=== PATIENT | female | born 1965 | race Caucasian/White ===

== ENCOUNTER 2017-03-25 21:11 | Emergency (ER) | payer OTHER ==
[~2017-03-25] VITALS: Ht 162.6 cm; Wt 77.6 kg
[~2017-03-25 21:11] MED LIST: CITALOPRAM HBR20 MG PO; GABAPENTIN300 MG PO; HYDROCODON-ACE1 EA11
[2017-03-25] MEDS ORDERED: CYCLOBENZAPRINE HCL 10 MG TAB PO ONE (22:30)
[2017-03-25] MEDS ORDERED: KETOROLAC TROMETHAMINE 60 MG/2 ML VIAL IM ONE (22:30)
[2017-03-25 23:00] VITALS: BP 145/80
== END 2017-03-25 22:39 | disposition home or self-care (01) ==
LOC: FSED 21:39
DX: M62.838 Other muscle spasm (principal)
CPT/HCPCS: 99282; J1885

== ENCOUNTER 2017-12-10 10:29 | Emergency (ER) | payer MEDICARE ==
[~2017-12-10] VITALS: Ht 162.6 cm; Wt 77.6 kg
[2017-12-10] MEDS ORDERED: HYDROCODONE/APAP 10MG-325MG TAB PO ONE (10:45)
--- NOTE | 2017-12-10 12:08 | Diagnostic Imaging Report ---
Radiographs of the left hand - 3 views. Radiographs of the left wrist 3 views HISTORY: Pain. Fall. COMPARISON: None available. FINDINGS: Bones: No acute displaced fracture. Osseous alignment is within normal limits. Joints: Mild scattered degenerative change about the left hand and left wrist. No osseous erosion. Soft tissues: Mild soft tissue swelling. No radiopaque foreign body. IMPRESSION: Mild scattered degenerative change about the left hand and left wrist. No osseous erosion. Signed by: Dr. Mihcael Min M.D. on 12/10/2017 12:05 PM
[2017-12-10] MEDS ORDERED: HYDROCODONE/APAP 10MG-325MG TAB PO SCH (14:45)
--- OUTSIDE RECORDS SUMMARY | 2017-12-10 14:46 | XMS REPORT | Summary of Care ---
Author Author [facility] Organization [facility] Address Unknown Phone Unavailable Encounter HQ Chris(FIN) [id number] Date(s): 09/30/15 - 10/01/15 [facility] [address] [place] [address]- Discharge Diagnosis: Low back pain Discharge Disposition: Home or Self Care Attending Physician: Cherry Linares DO Vital Signs Most recent to 1 2 oldest [Reference Range]: Height 162.56 cm (09/30/15 10:12 PM) Temperature Oral 98.7 DegF 99.4 DegF [96.4-99.1 DegF] (10/01/15 1:33 AM) *HI* (09/30/15 10:12 PM) Blood Pressure 164/89 mmHg [90-140/60-90 mmHg] *HI* (09/30/15 10:12 PM) Systolic Blood 127 mmHg Pressure [90-140 (10/01/15 1:33 AM) mmHg] Diastolic Blood 77 mmHg Pressure [60-90 (10/01/15 1:33 AM) mmHg] Respiratory Rate 18 BRMIN 18 BRMIN [14-20 BRMIN] (10/01/15 1:33 AM) (09/30/15 10:12 PM) Peripheral Pulse 90 bpm 89 bpm Rate [60-100 bpm] (10/01/15 1:33 AM) (09/30/15 10:12 PM) Weight 77.727 kg (09/30/15 10:12 PM) Body Mass Index 29.41 m2 (09/30/15 10:12 PM) Problem List Condition Effective Dates Status Health Status Informant Arthritis(Confirmed) Resolved Backache1 07/29/12 Active Migraine2 07/29/12 Active Multiple Resolved sclerosis(Confirmed) Neuropathy(Confirmed Resolved ) Shingles(Confirmed) Resolved [facility] 10/19/14. 2Data migrated from [employer] on 10/19/14. Allergies, Adverse Reactions, Alerts Substance Reaction Severity Status codeine1, 2 Active 1[facility] on 05/17/15. Originally documented as CODEINE. 2[facility] from [facility] on 04/27/15. Originally documented as CODEINE. Medications Flexeril 10 mg oral tablet 10 mg, PO, TID, PRN Muscle Spasm, X 10 day, # 30 tab, 0 Refill(s) Start Date: 10/01/15 Stop Date: 10/11/15 Status: Ordered ibuprofen 400 mg oral tablet 400 mg=1 tab, PO, Q6H, PRN Pain or Fever, Take with food, X 10 day, # 40 tab, 0 Refill(s) Start Date: 10/01/15 Stop Date: 10/11/15 Status: Ordered ketOROLAC 30 mg, Route: IVP, Drug form: INJ, ONCE, Dosing Weight 77.727, kg, Priority: STA T, Start date: 09/30/15 23:43:00 CDT, Stop date: 09/30/15 23:43:00 CDT Start Date: 09/30/15 Stop Date: 09/30/15 Status: Discontinued morphine Sulfate 4 mg, 2 mL, Route: IVP, Drug form: INJ, ONCE, Dosing Weight 77.727, kg, Priority : STAT, Start date: 09/30/15 23:46:00 CDT, Stop date: 09/30/15 23:46:00 CDT Notes: (Same as:MORPhine Sulfate) Start Date: 09/30/15 Stop Date: 10/01/15 Status: Completed Sodium Chloride 0.9% (Bolus) IV 1,000 mL, 2,000 ml/hr, Infuse Over: 30 minutes, Route: IV, 1,000, Drug form: INJ , ONCE, Priority: STAT, Dosing Weight 77.727 kg, Start date: 09/30/15 23:46:00 C DT, Duration: 1 doses or times, Stop date: 09/30/15 23:46:00 CDT Start Date: 09/30/15 Stop Date: 10/01/15 Status: Completed Sodium Chloride 0.9% (Bolus) IV 1,000 mL, 2,000 ml/hr, Infuse Over: 30 minutes, Route: IV, 1,000, Drug form: INJ , ONCE, Priority: STAT, Dosing Weight 77.727 kg, Start date: 09/30/15 23:46:00 C DT, Duration: 1 doses or times, Stop date: 09/30/15 23:46:00 CDT Start Date: 09/30/15 Stop Date: 10/01/15 Status: Completed Tylenol 650 mg, 2 tab, Route: PO, Drug form: TAB, ONCE, Dosing Weight 77.727, kg, Priori ty: STAT, Start date: 09/30/15 22:21:00 CDT, Stop date: 09/30/15 22:21:00 CDT Notes: Do not exceed 4 gm/day. (Same as: Tylenol) Start Date: 09/30/15 Stop Date: 10/01/15 Status: Completed Valium 5 mg, Route: IVP, Drug form: INJ, ONCE, Dosing Weight 77.727, kg, Priority: STAT , Start date: 09/30/15 23:43:00 CDT, Stop date: 09/30/15 23:43:00 CDT Start Date: 09/30/15 Stop Date: 09/30/15 Status: Discontinued Zofran 4 mg, 2 mL, Route: IVP, Drug form: INJ, ONCE, Dosing Weight 77.727, kg, Priority : STAT, Start date: 09/30/15 23:46:00 CDT, Stop date: 09/30/15 23:46:00 CDT Notes: (Same as: Zofran) MEDICATION WASTE Product Size: 4 mgProduct Was shan: ___ mg Start Date: 09/30/15 Stop Date: 10/01/15 Status: Completed Results ELECTROLYTES Most recent to 1 oldest [Reference Range]: Sodium Lvl [135-145 133 mEq/L mEq/L] *LOW* (09/30/15 10:58 PM) Potassium Lvl 3.5 mEq/L [3.5-5.1 mEq/L] (09/30/15 10:58 PM) Chloride Lvl [95-109 101 mEq/L mEq/L] (09/30/15 10:58 PM) CO2 [24-32 mEq/L] 25 mEq/L (09/30/15 10:58 PM) AGAP [10.0-20.0 10.5 mEq/L mEq/L] (09/30/15 10:58 PM) CHEM PANEL Most recent to 1 oldest [Reference Range]: Creatinine Lvl 0.93 mg/dL [0.50-1.40 mg/dL] (09/30/15 10:58 PM) eGFR 73 mL/min/1.73m2 1 *NA* (09/30/15 10:58 PM) BUN [7-22 mg/dL] 8 mg/dL (09/30/15 10:58 PM) B/C Ratio [6-25] 9 (09/30/15 10:58 PM) Glucose Lvl [70-99 93 mg/dL mg/dL] (09/30/15 10:58 PM) Total Protein 7.6 g/dL [6.4-8.4 g/dL] (09/30/15 10:58 PM) Albumin Lvl [3.5-5.0 3.8 g/dL g/dL] (09/30/15 10:58 PM) Globulin [2.7-4.2 3.8 g/dL g/dL] (09/30/15 10:58 PM) A/G Ratio [0.7-1.6] 1.0 (09/30/15 10:58 PM) Calcium Lvl 8.5 mg/dL [8.5-10.5 mg/dL] (09/30/15 10:58 PM) ALT [0-65 unit/L] 23 unit/L (09/30/15 10:58 PM) AST [0-37 unit/L] 20 unit/L (09/30/15 10:58 PM) Alk Phos [39-136 72 unit/L unit/L] (09/30/15 10:58 PM) Bili Total [0.2-1.3 0.2 mg/dL mg/dL] (09/30/15 10:58 PM) 1Result Comment: The eGFR is calculated using the CKD-EPI formula. In most young, healthy individuals the eGFR will be >90 mL/min/1.73m2. The eGFR declines with age. An eGFR of 60-89 may be normal in some populations, particularly the elderly, for whom the CKD-EPI formula has not been extensively validated. Use of the eGFR is not recommended in the following populations: Individuals with unstable creatinine concentrations, including patients and those with serious co-morbid conditions. Patients with extremes in muscle mass or diet. The data above are obtained from the National Kidney Disease Education Program ( NKDEP) which additionally recommends that when the eGFR is used in patients with extremes of body mass index for purposes of drug dosing, the eGFR should be mul tiplied by the estimated BMI. CARDIAC ENZYMES Most recent to 1 oldest [Reference Range]: Total CK [12-191 75 unit/L unit/L] (09/30/15 10:58 PM) URINE CHEM Most recent to 1 oldest [Reference Range]: U Preg [Negative] Negative (09/30/15 11:56 PM) URINE AND STOOL Most recent to 1 oldest [Reference Range]: UA Turbidity [Clear] Clear (09/30/15 11:56 PM) UA Color Ltyellow *NA* (09/30/15 11:56 PM) UA pH [5.0-8.0] 8.0 (09/30/15 11:56 PM) UA Spec Grav 1.012 [<=1.030] (09/30/15 11:56 PM) UA Glucose [Negative Negative mg/dL mg/dL] *NA* (09/30/15 11:56 PM) UA Blood [Negative] Negative (09/30/15 11:56 PM) UA Ketones [Negative Trace mg/dL mg/dL] *ABN* (09/30/15 11:56 PM) UA Protein [Negative Negative mg/dL mg/dL] (09/30/15 11:56 PM) UA Urobilinogen <=1.0 mg/dL [0.1-1.0 mg/dL] *NA* (09/30/15 11:56 PM) UA Bili [Negative] Negative *NA* (09/30/15 11:56 PM) UA Leuk Est Negative [Negative] (09/30/15 11:56 PM) UA Nitrite Negative [Negative] (09/30/15 11:56 PM) UA WBC [0-5 /HPF] <1 /HPF (09/30/15 11:56 PM) UA RBC [0-2 /HPF] 2 /HPF (09/30/15 11:56 PM) UA Sq Epi [Few /LPF] Few /LPF *NA* (09/30/15 11:56 PM) HEMATOLOGY Most recent to 1 oldest [Reference Range]: WBC [3.7-10.4 K/CMM] 6.1 K/CMM (09/30/15 10:58 PM) RBC [4.20-5.40 4.71 M/CMM M/CMM] (09/30/15 10:58 PM) Hgb [12.0-16.0 g/dL] 13.9 g/dL (09/30/15 10:58 PM) Hct [36.0-48.0 %] 40.5 % (09/30/15 10:58 PM) MCV [80.0-98.0 fL] 86.1 fL (09/30/15 10:58 PM) MCH [27.0-31.0 pg] 29.5 pg (09/30/15 10:58 PM) MCHC [32.0-36.0 34.3 g/dL g/dL] (09/30/15 10:58 PM) RDW [11.5-14.5 %] 13.6 % (09/30/15 10:58 PM) Platelet [133-450 219 K/CMM K/CMM] (09/30/15 10:58 PM) MPV [7.4-10.4 fL] 8.5 fL (09/30/15 10:58 PM) Segs [45.0-75.0 %] 72.6 % (09/30/15 10:58 PM) Lymphocytes 14.0 % [20.0-40.0 %] *LOW* (09/30/15 10:58 PM) Monocytes [2.0-12.0 11.2 % %] (09/30/15 10:58 PM) Eosinophils [0.0-4.0 1.9 % %] (09/30/15 10:58 PM) Basophils [0.0-1.0 0.3 % %] (09/30/15 10:58 PM) Segs-Bands # 4.4 K/CMM [1.5-8.1 K/CMM] (09/30/15 10:58 PM) Lymphocytes # 0.9 K/CMM [1.0-5.5 K/CMM] *LOW* (09/30/15 10:58 PM) Monocytes # [0.0-0.8 0.7 K/CMM K/CMM] (09/30/15 10:58 PM) Eosinophils # 0.1 K/CMM [0.0-0.5 K/CMM] (09/30/15 10:58 PM) Immunizations No data available for this section Procedures No data available for this section Social History Social History Type Response Smoking Status Never smoker; Ready to change: No; Concerns about tobacco use in household: No; Exposure to Tobacco Smoke None; Cigarette Smoking Last 365 Days No; Reg Smoking Cessation Counseling No Assessment and Plan No data available for this section
--- OUTSIDE RECORDS SUMMARY | 2017-12-10 14:46 | XMS REPORT | Continuity of Care Document ---
Author Author [facility] Interface Address Unknown Phone Unavailable Problems Problem Status Onset Date Classification Date Reported Comments Source Discharge Diagnosis: Low back pain 10/01/2015 10/04/2015 [facility] FEVER Active 09/30/2015 [facility] Backache<sup>1</sup> Active 07/29/2012 Problem 10/04/2015 Data migrated from [employer] on 10/19/14. [facility] Migraine<sup>2</sup> Active 07/29/2012 Problem 10/04/2015 Data migrated from [employer] on 10/19/14. [facility] Arthritis Resolved Problem 10/04/2015 [facility] Multiple sclerosis Resolved Problem 10/04/2015 [facility] Neuropathy Resolved Problem 10/04/2015 [facility] Shingles Resolved Problem 10/04/2015 [facility] Medications Medication Details Route Status Patient Instructions Ordering Provider Order Date Source Ibuprofen 400 MG Oral Tablet 400 mg=1 tab, PO, Q6H, PRN Pain or Fever, Take with food, X 10 day, # 40 tab, 0 Refill(s) Active 10/01/2015 [facility] Cyclobenzaprine hydrochloride 10 MG Oral Tablet [Flexeril] 10 mg, PO, TID, PRN Muscle Spasm, X 10 day, # 30 tab, 0 Refill(s) Active 10/01/2015 [facility] Sodium Chloride 0.154 MEQ/ML Injectable Solution 1,000 mL, 2,000 ml/hr, Infuse Over: 30 minutes, Route: IV, 1,000, Drug form: INJ, ONCE, Priority: STAT, Dosing Weight 77.727 kg, Start date: 09/30/15 23:46:00 CDT, Duration: 1 doses or times, Stop date: 09/30/15 23:46:00 CDT No Longer Active 10/01/2015 [facility] Zofran 4 mg, 2 mL, Route: IVP, Drug form: INJ, ONCE, Dosing Weight 77.727, kg, Priority: STAT, Start date: 09/30/15 23:46:00 CDT, Stop date: 09/30/15 23:46:00 CDTNotes: (Same as: Zofran) MEDICATION WASTE Product Size: 4 mg Product Wasted: ___ mg No Longer Active 10/01/2015 [facility] Morphine 4 mg, 2 mL, Route: IVP, Drug form: INJ, ONCE, Dosing Weight 77.727, kg, Priority: STAT, Start date: 09/30/15 23:46:00 CDT, Stop date: 09/30/15 23:46:00 CDTNotes: (Same as:MORPhine Sulfate) No Longer Active 10/01/2015 [facility] Ketorolac 30 mg, Route: IVP, Drug form: INJ, ONCE, Dosing Weight 77.727, kg, Priority: STAT, Start date: 09/30/15 23:43:00 CDT, Stop date: 09/30/15 23:43:00 CDT Inactive 10/01/2015 [facility] Valium 5 mg, Route: IVP, Drug form: INJ, ONCE, Dosing Weight 77.727, kg, Priority: STAT, Start date: 09/30/15 23:43:00 CDT, Stop date: 09/30/15 23:43:00 CDT Inactive 10/01/2015 [facility] Tylenol 650 mg, 2 tab, Route: PO, Drug form: TAB, ONCE, Dosing Weight 77.727, kg, Priority: STAT, Start date: 09/30/15 22:21:00 CDT, Stop date: 09/30/15 22:21:00 CDTNotes: Do not exceed 4 gm/day. (Same as: Tylenol) No Longer Active 10/01/2015 [facility] Allergies, Adverse Reactions, Alerts Substance Category Reaction Severity Reaction type Status Date Reported Comments Source codeine<sup>1, 2</sup> Assertion Drug allergy Active 07/29/2012 Data migrated from [employer] on 04/27/15. Originally documented as CODEINE. [facility] Immunizations Immunization Date Given Site Status Last Updated Comments Source Results Order Name Results Value Reference Range Date Interpretation Comments Source URINE AND STOOL UA Urobilinogen <=1.0 mg/dL 0.1 - 1.0 10/01/2015 [facility] URINE AND STOOL UA Color Ltyellow 10/01/2015 [facility] URINE AND STOOL UA Turbidity Clear (09/30/15 11:56 PM) Clear 10/01/2015 [facility] URINE AND STOOL UA Spec Grav 1.012 <=1.030 10/01/2015 [facility] URINE AND STOOL UA Glucose Negative mg/dL Negative mg/dL 10/01/2015 [facility] URINE AND STOOL UA Ketones Trace mg/dL Negative mg/dL 10/01/2015 [facility] URINE AND STOOL UA pH 8.0 5.0 - 8.0 10/01/2015 [facility] URINE AND STOOL UA Protein Negative mg/dL Negative mg/dL 10/01/2015 [facility] URINE AND STOOL UA Bili Negative *NA* (09/30/15 11:56 PM) Negative 10/01/2015 [facility] URINE AND STOOL UA Blood Negative (09/30/15 11:56 PM) Negative 10/01/2015 [facility] URINE AND STOOL UA Sq Epi Few /LPF Few /LPF 10/01/2015 [facility] URINE AND STOOL UA Nitrite Negative (09/30/15 11:56 PM) Negative 10/01/2015 [facility] URINE AND STOOL UA Leuk Est Negative (09/30/15 11:56 PM) Negative 10/01/2015 [facility] URINE AND STOOL UA WBC null 0 - 5 10/01/2015 [facility] URINE AND STOOL UA RBC 2 /HPF 0 - 2 10/01/2015 [facility] URINE CHEM U Preg Negative (09/30/15 11:56 PM) Negative 10/01/2015 [facility] CARDIAC ENZYMES Total CK 75 unit/L 12 - 191 10/01/2015 [facility] ELECTROLYTES AGAP 10.5 meq/L 10.0 - 20.0 10/01/2015 [facility] ELECTROLYTES Globulin 3.8 g/dL 2.7 - 4.2 10/01/2015 [facility] ELECTROLYTES A/G Ratio 1.0 0.7 - 1.6 10/01/2015 [facility] ELECTROLYTES B/C Ratio 9 6 - 25 10/01/2015 [facility] ELECTROLYTES BUN 8 mg/dL 7 - 22 10/01/2015 [facility] ELECTROLYTES Glucose Lvl 93 mg/dL 70 - 99 10/01/2015 [facility] ELECTROLYTES Potassium Lvl 3.5 meq/L 3.5 - 5.1 10/01/2015 [facility] ELECTROLYTES Sodium Lvl 133 meq/L 135 - 145 10/01/2015 [facility] ELECTROLYTES Calcium Lvl 8.5 mg/dL 8.5 - 10.5 10/01/2015 [facility] ELECTROLYTES CO2 25 meq/L 24 - 32 10/01/2015 [facility] ELECTROLYTES Chloride Lvl 101 meq/L 95 - 109 10/01/2015 [facility] ELECTROLYTES Albumin Lvl 3.8 g/dL 3.5 - 5.0 10/01/2015 [facility] ELECTROLYTES eGFR 73 mL/min/1.73m2 10/01/2015 Result Comment: The eGFR is calculated using the [...] from the National Kidney Disease Education Program (NKDEP) which additionally recommends that when the eGFR is used in patients with extremes of body mass index for purposes of drug dosing, the eGFR should be multiplied by the estimated BMI. [facility] ELECTROLYTES AST 20 unit/L 0 - 37 10/01/2015 [facility] ELECTROLYTES Alk Phos 72 unit/L 39 - 136 10/01/2015 [facility] ELECTROLYTES Bili Total 0.2 mg/dL 0.2 - 1.3 10/01/2015 [facility] Creatinine Lvl 0.93 mg/dL 0.50 - 1.40 10/01/2015 [facility] ELECTROLYTES Total Protein 7.6 g/dL 6.4 - 8.4 10/01/2015 [facility] ELECTROLYTES ALT 23 unit/L 0 - 65 10/01/2015 [facility] HEMATOLOGY Eosinophils # 0.1 K/CMM 0.0 - 0.5 10/01/2015 [facility] HEMATOLOGY Monocytes # 0.7 K/CMM 0.0 - 0.8 10/01/2015 [facility] HEMATOLOGY Basophils 0.3 % 0.0 - 1.0 10/01/2015 [facility] HEMATOLOGY Segs-Bands # 4.4 K/CMM 1.5 - 8.1 10/01/2015 [facility] HEMATOLOGY Lymphocytes # 0.9 K/CMM 1.0 - 5.5 10/01/2015 [facility] HEMATOLOGY Segs 72.6 % 45.0 - 75.0 10/01/2015 [facility] Monocytes 11.2 % 2.0 - 12.0 10/01/2015 [facility] Eosinophils 1.9 % 0.0 - 4.0 10/01/2015 [facility] Lymphocytes 14.0 % 20.0 - 40.0 10/01/2015 [facility] WBC 6.1 K/CMM 3.7 - 10.4 10/01/2015 [facility] Platelet 219 K/CMM 133 - 450 10/01/2015 [facility] RDW 13.6 % 11.5 - 14.5 10/01/2015 [facility] MPV 8.5 fL 7.4 - 10.4 10/01/2015 [facility] MCH 29.5 pg 27.0 - 31.0 10/01/2015 [facility] MCV 86.1 fL 80.0 - 98.0 10/01/2015 [facility] Hct 40.5 % 36.0 - 48.0 10/01/2015 [facility] MCHC 34.3 g/dL 32.0 - 36.0 10/01/2015 [facility] Hgb 13.9 g/dL 12.0 - 16.0 10/01/2015 [facility] RBC 4.71 M/CMM 4.20 - 5.40 10/01/2015 [facility] Chest 1view DX Chest 1view DX Patient Name: RENO CARLOS : 1965; Age: 50 years y/o Female MR: [id number] Study: Chest 1view DX dated 09/30/2015 Clinical Indication: Fever; Comparison: None Cardiac and mediastinal structures are normal. No focal infiltrate identified within the lungs, no edema and no pneumothorax. Bones and soft tissues are unremarkable SL: TAMMIE 09/30/2015 - - Read by: Gunnar Hutson MD Dictated Date/time: 10/01/15 00:01 Electronically Signed by: Gunnar Hutson MD 10/01/15 00:02 FINAL REPORT [facility] lumbar 2 or 3 views Spine lumbar 2 or 3 views Three views lumbar spine. INDICATION: Back pain. COMPARISON: August 04, 2012 CT lumbar spine. IMPRESSION: Interval postoperative changes of fusion at L4-L5 and L5-S1 with intervertebral disc spacers. L5-S1 disc space is no longer narrowed. Persistent grade 1 anterolisthesis of L4 on L5 with bilateral pars defects, perhaps mildly widened since CT. No acute compression fracture is identified. 12/09/2012 - - Read by: Bjorn Donato Dictated Date/time: 12/09/12 16:14 Electronically Signed by: Bjorn Donato MD 12/09/12 16:22 FINAL REPORT ER[facility] Squires Vital Signs Vital Sign Value Date Comments Source Systolic (mm Hg) 127 10/01/2015 [facility] Diastolic (mm Hg) 77 10/01/2015 [facility] Respitory Rate 18 10/01/2015 [facility] Heart Rate 90 10/01/2015 [facility] Temperature Oral (F) 98.7 F 10/01/2015 [facility] Weight 77.727 10/01/2015 [facility] Temperature Oral (F) 99.4 F 10/01/2015 [facility] Height 162.56 cm 10/01/2015 [facility] Heart Rate 89 10/01/2015 [facility] Respitory Rate 18 10/01/2015 [facility] BMI Calculated 29.41 10/01/2015 [facility] Systolic (mm Hg) 164 10/01/2015 [facility] Diastolic (mm Hg) 89 10/01/2015 [facility] Encounters Location Location Details Encounter Type Encounter Number Reason For Visit Attending Provider ADM Date DC Date Status Source [facility] [id number] Cherry Linares 10/01/2015 10/01/2015 [facility] Procedures Procedure Code Date Perfomer Comments Source
[2017-12-10 16:00] VITALS: BP 149/84
[2017-12-10] MEDS ORDERED: IBUPROFEN 600 MG TAB ONE (16:08)
== END 2017-12-10 16:04 | disposition home or self-care (01) ==
LOC: ER 10:29
DX: S60.222A Contusion of left hand, initial encounter (principal); M79.642 Pain in left hand; Y92.008 Other place in unspecified non-institutional (private) residence as the place of occurrence of the external cause; M06.9 Rheumatoid arthritis, unspecified
CPT/HCPCS: 99283

== ENCOUNTER 2020-07-18 15:36 | Observation (INO) | payer MEDICARE ==
[~2020-07-18] VITALS: Ht 157.5 cm; Wt 73.5 kg
[2020-07-18] MEDS ORDERED: ASPIRIN 81 MG CHEW TAB PO ONE (16:30)
[2020-07-18 17:18] LABS: BASOPHILS # (AUTO) 0.1 (0.0-0.1); BASOPHILS % 0.8 % (0.0-1.0); EOSINOPHILS # (AUTO) 0.6 (0.0-0.4); EOSINOPHILS % 8.6 % (0.0-6.0); HEMATOCRIT 41.9 % (34.2-44.1); HEMOGLOBIN 13.5 g/dL (12.0-16.0); LYMPHOCYTES # (AUTO) 2.3 (1.0-3.2); MEAN CORPUSCULAR HEMOGLOBIN 27.7 pg (28-32); MEAN CORPUSCULAR HGB CONC 32.2 g/dL (31-35); MONOCYTES # (AUTO) 0.7 (0.2-0.8); MONOCYTES % 10.9 % (4.4-11.3); NEUTROPHILS # (AUTO) 2.9 (2.1-6.9); NEUTROPHILS % 44.4 % (38.7-80.0); PLATELET COUNT 251 x10e3/uL (140-360); RED BLOOD COUNT 4.87 x10e6/uL (3.6-5.1); RED CELL DISTRIBUTION WIDTH 14.8 % (11.7-14.4)
[2020-07-18 17:35] LABS: ALANINE AMINOTRANSFERASE 17 IU/L (0-55); ALBUMIN/GLOBULIN RATIO 1.3 (0.8-2.0); ANION GAP 13.7 mmol/L (8-16); BLOOD UREA NITROGEN 10 mg/dL (7-26); BUN/CREATININE RATIO 13 (6-25); CALCIUM 8.8 mg/dL (8.4-10.2); CARBON DIOXIDE 25 mmol/L (22-29); CHLORIDE 106 mmol/L (98-107); CREATINE KINASE 89 IU/L (29-168); CREATININE, SERUM 0.79 mg/dL (0.57-1.11); EST GLOMERULAR FILTRATION RATE > 60 ML/MIN (60-); GLUCOSE 111 mg/dL (74-118); POTASSIUM 3.7 mmol/L (3.5-5.1); SODIUM 141 mmol/L (136-145)
[2020-07-18 18:05] LABS: ALKALINE PHOSPHATASE 63 IU/L (40-150)
[2020-07-18 18:12] LABS: AMPHETAMINES SCREEN,URINE NEGATIVE (NEGATIVE); BENZODIAZEPINES SCREEN,URINE NEGATIVE (NEGATIVE); CLARITY,URINE CLEAR (CLEAR); COLOR,URINE YELLOW (YELLOW); KETONES,URINE NEGATIVE (NEGATIVE); LEUKOCYTE ESTERASE ,URINE TRACE (NEGATIVE); NITRITE,URINE NEGATIVE (NEGATIVE); PHENCYCLIDINE SCREEN,URINE NEGATIVE (NEGATIVE); PROTEIN,URINE DIPSTICK NEGATIVE (NEGATIVE); URINE UROBILINOGEN 0.2 mg/dL (0.2 - 1)
[2020-07-18 18:36] LABS: WBC,URINE (MAN) 0-5 /HPF (0-5)
[2020-07-18 18:37] LABS: EPITHELIAL CELLS,URINE FEW /LPF
[2020-07-19 01:45] LABS: CREATINE KINASE 82 IU/L (29-168)
[2020-07-19 06:47] LABS: BASOPHILS # (AUTO) 0.1 (0.0-0.1); BASOPHILS % 0.9 % (0.0-1.0); EOSINOPHILS # (AUTO) 0.6 (0.0-0.4); EOSINOPHILS % 7.4 % (0.0-6.0); HEMATOCRIT 40.5 % (34.2-44.1); HEMOGLOBIN 13.3 g/dL (12.0-16.0); LYMPHOCYTES # (AUTO) 2.2 (1.0-3.2); LYMPHOCYTES % 29.2 % (18.0-39.1); MEAN CORPUSCULAR HEMOGLOBIN 28.1 pg (28-32); MEAN CORPUSCULAR HGB CONC 32.8 g/dL (31-35); MEAN CORPUSCULAR VOLUME 85.4 fL (81-99); MONOCYTES # (AUTO) 0.9 (0.2-0.8); MONOCYTES % 11.7 % (4.4-11.3); NEUTROPHILS # (AUTO) 3.8 (2.1-6.9); NEUTROPHILS % 50.5 % (38.7-80.0); PLATELET COUNT 255 x10e3/uL (140-360); RED BLOOD COUNT 4.74 x10e6/uL (3.6-5.1); RED CELL DISTRIBUTION WIDTH 14.9 % (11.7-14.4)
[2020-07-19 07:09] LABS: CREATINE KINASE 79 IU/L (29-168)
[2020-07-19 07:30] LABS: ALANINE AMINOTRANSFERASE 16 IU/L (0-55); ALBUMIN 3.7 g/dL (3.5-5.0); ALBUMIN/GLOBULIN RATIO 1.2 (0.8-2.0); ALKALINE PHOSPHATASE 61 IU/L (40-150); ANION GAP 11.8 mmol/L (8-16); BLOOD UREA NITROGEN 10 mg/dL (7-26); BUN/CREATININE RATIO 14 (6-25); CALCIUM 8.7 mg/dL (8.4-10.2); CARBON DIOXIDE 23 mmol/L (22-29); CHLORIDE 109 mmol/L (98-107); CREATININE, SERUM 0.73 mg/dL (0.57-1.11); EST GLOMERULAR FILTRATION RATE > 60 ML/MIN (60-); GLUCOSE 106 mg/dL (74-118); POTASSIUM 3.8 mmol/L (3.5-5.1); SODIUM 140 mmol/L (136-145)
[2020-07-19 11:58] LABS: CHOL/HDL RATIO 3.7 (3.0-3.6)
[2020-07-19 12:42] VITALS: BP 138/57
[2020-07-19 12:49] VITALS: BP 138/57
[2020-07-19] MEDS ORDERED: LYRICA150 MG PO (13:54)
[2020-07-19] MEDS ORDERED: PLAQUENIL200 MG PO (13:55)
[2020-07-19] MEDS ORDERED: MELOXICAM7.5 MG PO (13:55)
[2020-07-19] MEDS ORDERED: FAMOTIDINE 20 MG TAB PO SCH (16:30)
[2020-07-19] MEDS ORDERED: GABAPENTIN 300 MG CAP PO SCH (21:00)
[2020-07-20] MEDS ORDERED: ASPIRIN 81 MG ENTERIC COATED PO SCH (09:00)
[2020-07-20] MEDS ORDERED: CITALOPRAM HYDROBROMIDE 20 MG TAB PO SCH (09:00)
== END 2020-07-19 20:17 | disposition home or self-care (01) ==
LOC: ER 17:30 → ERHOLD 20:58 → MED/SURG3 07-19 12:38
PROVIDERS: ADMIT Internal Medicine; ATTEND Internal Medicine
DX: R55 Syncope and collapse (principal); S00.83XA Contusion of other part of head, initial encounter; W19.XXXA Unspecified fall, initial encounter; Y92.000 Kitchen of unspecified non-institutional (private) residence as the place of occurrence of the external cause; Z20.822 Contact with and (suspected) exposure to COVID-19
CPT/HCPCS: 36415 ×2; 70450; 72125; 72220; 80053 ×2; 80061; 80307; 80320; 81001; 82550 ×2; 82553 ×2; 84484 ×2; 85025 ×2; 93005; 93306; 93880; 99284; G0378 ×2; U0002